=== PATIENT | female | born 1985 | race African-American/Black ===

== ENCOUNTER 2017-03-26 14:20 | Emergency (ER) | payer OTHER ==
[~2017-03-26] VITALS: Ht 152.4 cm; Wt 69.9 kg
[2017-03-26 13:00] VITALS: BP 110/57
[~2017-03-26 14:20] MED LIST: PREN-380 PO
[2017-03-26 15:11] VITALS: BP 124/64
--- NOTE | 2017-03-26 15:19 | NUR ---
pt to lobby awaiting room for MSE. SHEMAR. ANGEL LUIS.
--- NOTE | 2017-03-26 15:30 | NUR ---
call patient; no answer; searched lobby and outside area
== END 2017-03-26 15:30 | disposition left against medical advice (07) ==
LOC: MED 14:20 → EDSTATUS 14:20 → MED 15:30
DX: R09.89 Other specified symptoms and signs involving the circulatory and respiratory systems (principal); Z53.21 Procedure and treatment not carried out due to patient leaving prior to being seen by health care provider
CPT/HCPCS: 76819; 99281; Q0092

== ENCOUNTER 2017-05-09 04:55 | Inpatient (IN) | payer OTHER ==
[~2017-05-09] VITALS: Ht 152.4 cm; Wt 69.9 kg
[2017-05-09] MEDS ORDERED: CITRIC ACID/SODIUM CITRATE 30 ML UDC PO ONE (05:40)
[2017-05-09 05:50] VITALS: BP 110/65
[2017-05-09 06:16] LABS: BASOPHILS # (AUTO) 0.1 K/uL (0.00-0.22); BASOPHILS % (AUTO) 1.7 % (0.0-2.0); EOSINOPHILS # (AUTO) 0.2 K/uL (0-0.4); EOSINOPHILS % (AUTO) 2.6 % (0.0-4.0); HEMATOCRIT 38.4 % (36-48); HEMOGLOBIN 12.7 g/dL (12.0-16.0); LYMPHOCYTES # (AUTO) 1.5 K/uL (2.5-16.5); LYMPHOCYTES % (AUTO) 20.9 % (20.5-51.1); MEAN CORPUSCULAR HEMOGLOBIN 32 pg (27-31); MEAN CORPUSCULAR HGB CONC 33 g/dL (33-37); MEAN CORPUSCULAR VOLUME 96 fL (80-94); MONOCYTES # (AUTO) 0.5 K/uL (0.8-1.0); NEUTROPHILS % (AUTO) 67.8 % (42.2-75.2); PLATELET COUNT (AUTO) 248 K/uL (140-450); RED BLOOD CELL COUNT(AUTO) 4.03 MIL/uL (4.20-5.40); RED CELL DISTRIBUTION WIDTH 14.8 % (11.6-13.7); WHITE BLOOD COUNT (AUTO) 7.3 K/uL (4.8-10.8)
[2017-05-09 06:18] LABS: ANION GAP 14.9 (8-16); CARBON DIOXIDE 23.6 mmol/L (21-32); CREATININE 0.5 mg/dL (0.6-1.3); POTASSIUM 3.5 mmol/L (3.5-5.1); TOTAL BILIRUBIN 1.2 mg/dL (0.0-1.0)
[2017-05-09 06:27] LABS: APPEARANCE,URINE CLEAR (CLEAR); BILIRUBIN,URINE NEGATIVE (NEGATIVE); BLOOD, URINE NEGATIVE (NEGATIVE); COLOR,URINE YELLOW (YELLOW); LEUKOCYTE ESTERASE ,URINE NEGATIVE (NEGATIVE); NITRITE, URINE NEGATIVE (NEGATIVE); PH,URINE 6.5 (5.0-9.0); UGLUCOSE NEGATIVE (NEGATIVE)
[2017-05-09] MEDS: LACTATED RINGERS 1,000 ML IV SCH ×2 (06:34→06:35)
[2017-05-09] MEDS ORDERED: ceFAZolin 2,000 MG in NACL 0.9% 100 ML IV SCH (07:12)
[2017-05-09] MEDS ORDERED: MIDAZOLAM 2 MG/2 ML VIAL ONE (07:17)
[2017-05-09] MEDS ORDERED: MORPHINE PRES FREE 10 MG/10 ML AMP IV ONE (07:17)
[2017-05-09] MEDS ORDERED: ceFAZolin 1,000 MG VIAL ONE (07:21)
[2017-05-09] MEDS ORDERED: OXYTOCIN 10 UNITS/ML VIAL ONE (07:21)
[2017-05-09] MEDS ORDERED: BUPIVACAINE-MPF 0.75% 10 ML VIAL INJ ONE (07:30)
[2017-05-09] MEDS ORDERED: MEPERIDINE 25 MG/ML SYR IVP PRN (08:00)
[2017-05-09] MEDS ORDERED: ONDANSETRON 4 MG/2 ML VIAL IVP PRN ×2 (08:00)
[2017-05-09] MEDS ORDERED: diphenhydrAMINE 50 MG/ML VIAL IVP PRN ×2 (08:00)
[2017-05-09] MEDS ORDERED: NALOXONE 0.4 MG/ML VIAL IVP PRN ×3 (08:00)
[2017-05-09] MEDS ORDERED: NALBUPHINE 10 MG/ML AMP IVP PRN (08:00)
[2017-05-09] MEDS ORDERED: HYDROmorphone 1 MG/ML AMP IVP PRN (08:00)
--- NOTE | 2017-05-09 08:27 | NUR ---
PATIENT HAS BEEN SCREENED AND CATEGORIZED LOW NUTRITION RISK. PATIENT WILL BE SEEN WITHIN 7 DAYS OF ADMISSION. 05/15/[address]
[2017-05-09] MEDS ORDERED: diphenhydrAMINE 50 MG/ML VIAL ONE (08:31)
[2017-05-09] MEDS ORDERED: OXYTOCIN 20 UNITS/LR PREMIX 1,000 ML IV ONE (08:31)
[2017-05-09] MEDS ORDERED: KETOROLAC 30 MG/ML VIAL IM/IVP SCH (12:00)
[2017-05-09] MEDS: OXYTOCIN 20 UNITS in LACTATED RINGERS 1,000 ML IV SCH ×2 (12:51→20:41)
[2017-05-09] MEDS ORDERED: HYDROcodone/APAP 5/325 MG 1 TAB TAB PO PRN ×2 (20:35)
[2017-05-09] MEDS: DOCUSATE SOD/SENNA 50/8.6 MG 1 TAB PO SCH (21:00)
[2017-05-09] MEDS ORDERED: IBUPROFEN 600 MG TAB PO PRN (21:10)
[2017-05-10] MEDS: OXYTOCIN 20 UNITS in LACTATED RINGERS 1,000 ML IV SCH (04:36)
[2017-05-10 05:29] LABS: BASOPHILS # (AUTO) 0.1 K/uL (0.00-0.22); BASOPHILS % (AUTO) 1.3 % (0.0-2.0); EOSINOPHILS # (AUTO) 0.1 K/uL (0-0.4); EOSINOPHILS % (AUTO) 1.1 % (0.0-4.0); HEMOGLOBIN 11.5 g/dL (12.0-16.0); LYMPHOCYTES # (AUTO) 1.1 K/uL (2.5-16.5); LYMPHOCYTES % (AUTO) 10.7 % (20.5-51.1); MEAN CORPUSCULAR HEMOGLOBIN 32 pg (27-31); MEAN CORPUSCULAR HGB CONC 34 g/dL (33-37); MEAN CORPUSCULAR VOLUME 93 fL (80-94); MONOCYTES # (AUTO) 0.6 K/uL (0.8-1.0); NEUTROPHILS # (AUTO) 8.1 K/uL (1.8-7.7); NEUTROPHILS % (AUTO) 80.9 % (42.2-75.2); PLATELET COUNT (AUTO) 223 K/uL (140-450); RED BLOOD CELL COUNT(AUTO) 3.65 MIL/uL (4.20-5.40); RED CELL DISTRIBUTION WIDTH 14.7 % (11.6-13.7)
[2017-05-10] MEDS: oxyCODONE/APAP 5/325 MG 1 TAB TAB PO PRN ×3 (14:00→22:09)
[2017-05-10] MEDS: DOCUSATE SOD/SENNA 50/8.6 MG 1 TAB PO SCH (21:07)
[2017-05-11] MEDS: oxyCODONE/APAP 5/325 MG 1 TAB TAB PO PRN ×2 (04:03→11:34)
== END 2017-05-11 15:25 | disposition home or self-care (01) | DRG 540 ==
LOC: MLD 04:55 → MFCC 08:40
PROVIDERS: ADMIT Obstetrics & Gynecology; ATTEND Obstetrics & Gynecology
PROC: 0UB70ZZ Excision of Bilateral Fallopian Tubes, Open Approach (ICD-10-PCS; 2017-05-09)
PROC: 10D00Z1 Extraction of Products of Conception, Low, Open Approach (ICD-10-PCS; principal; 2017-05-09 07:30)
DX: O34.211 Maternal care for low transverse scar from previous cesarean delivery (principal); Z22.322 Carrier or suspected carrier of Methicillin resistant Staphylococcus aureus; Z30.2 Encounter for sterilization; Z37.0 Single live birth; Z3A.38 38 weeks gestation of pregnancy
CPT/HCPCS: 36415; 51702; 80053; 81003; 85025; 86592; 86886; 86900; 86901; 87081; J0690; J1200; J1885; J2250; J2270; J2590; J3490; J7060; J7120

== ENCOUNTER 2017-05-16 09:47 | Emergency (ER) | payer OTHER ==
[~2017-05-16] VITALS: Ht 152.4 cm; Wt 61.2 kg
[2017-05-16 09:51] VITALS: BP 144/86
[2017-05-16] MEDS ORDERED: IBUPROFEN 800 MG TABLET (09:55)
[2017-05-16] MEDS ORDERED: oxyCODONE/APAP 5/325 MG 1 TAB TAB PO ONE (10:45)
[2017-05-16 11:26] VITALS: BP 124/75
== END 2017-05-16 11:24 | disposition home or self-care (01) ==
LOC: MED 09:47
DX: L76.32 Postprocedural hematoma of skin and subcutaneous tissue following other procedure (principal)
CPT/HCPCS: 81002; 99283

== ENCOUNTER 2022-06-23 03:23 | Emergency (ER) | payer OTHER ==
[~2022-06-23] VITALS: Ht 152.4 cm; Wt 61.2 kg
[~2022-06-23 03:23] MED LIST changes: +IBUPROFEN 800 MG TABLET
--- NOTE | 2022-06-23 03:25 | NUR ---
TO BED AMBULATORY
--- NOTE | 2022-06-23 04:00 | NUR ---
RECEIVED PT IN BED 12 AT THIS TIME WITH C/O LEFT SHOULDER AND LEFT ARM PAIN
[2022-06-23] MEDS ORDERED: KETOROLAC 60 MG/2 ML VIAL IM ONE (04:30)
[2022-06-23] MEDS ORDERED: NAPR-54 PO (05:03)
[2022-06-23 05:09] VITALS: BP 134/68
--- NOTE | 2022-06-23 05:09 | NUR ---
Patient discharged with v/s stable. Written and verbal after care instructions given and explained. Patient verbalized understanding. Ambulatory with steady gait. All questions addressed prior to discharge. Advised to follow up with PMD.
== END 2022-06-23 05:09 | disposition home or self-care (01) ==
LOC: MED 03:23
DX: S43.402A Unspecified sprain of left shoulder joint, initial encounter (principal); Z98.890 Other specified postprocedural states; Z79.1 Long term (current) use of non-steroidal anti-inflammatories (NSAID); Z79.899 Other long term (current) drug therapy; X58.XXXA Exposure to other specified factors, initial encounter; Y92.89 Other specified places as the place of occurrence of the external cause; Y93.89 Activity, other specified; Y99.8 Other external cause status
CPT/HCPCS: 73020; 96372; 99283; J1885

== ENCOUNTER 2022-06-29 02:58 | Emergency (ER) | payer OTHER ==
[~2022-06-29] VITALS: Ht 152.4 cm; Wt 61.2 kg
[~2022-06-29 02:58] MED LIST changes: +NAPR-54 PO
[2022-06-29 03:05] VITALS: BP 136/90
--- NOTE | 2022-06-29 03:05 | NUR ---
TO BED AMBULATORY
--- NOTE | 2022-06-29 03:30 | NUR ---
NECK PAIN FOR 3 DAYS, NO TRAUMA NOR INJURY
[2022-06-29] MEDS ORDERED: IBUPROFEN 600 MG TAB PO ONE (03:55)
[2022-06-29] MEDS ORDERED: ACETAMINOPHEN EXTRA STRENGTH 500 MG TAB PO ONE (03:55)
[2022-06-29] MEDS ORDERED: CYCLOBENZAPRINE 10 MG TAB PO ONE (03:55)
[2022-06-29] MEDS ORDERED: ACET-9525 PO (05:50)
[2022-06-29] MEDS ORDERED: CYCL-711 PO (05:50)
[2022-06-29 05:55] VITALS: BP 136/90
== END 2022-06-29 05:55 | disposition home or self-care (01) ==
LOC: MED 02:58
DX: M43.6 Torticollis (principal); Z79.899 Other long term (current) drug therapy
CPT/HCPCS: 99284

== ENCOUNTER 2022-12-14 08:09 | Emergency (ER) | payer OTHER ==
[~2022-12-14] VITALS: Ht 152.4 cm; Wt 66.2 kg
[~2022-12-14 08:09] MED LIST changes: +ACET-9525 PO; +CYCL-711 PO
[2022-12-14 08:13] VITALS: BP 136/92; PULSE 79; RESP 16; TEMP 97.2; O2SAT 99
[2022-12-14 08:45] VITALS: O2SAT 99
[2022-12-14] MEDS ORDERED: KETOROLAC 15 MG/ML VIAL IM ONE (08:45)
[2022-12-14] MEDS ORDERED: IBUP-2213 PO (09:36)
== END 2022-12-14 09:53 | disposition home or self-care (01) ==
LOC: MED 08:09
DX: G56.01 Carpal tunnel syndrome, right upper limb (principal); M54.10 Radiculopathy, site unspecified; Z79.899 Other long term (current) drug therapy
CPT/HCPCS: 73030; 81025; 96372; 99283; J1885